=== PATIENT | female | born 2000 | race Caucasian/White ===

== ENCOUNTER 2020-09-05 12:57 | Inpatient (IN) | payer OTHER ==
[~2020-09-05] VITALS: Ht 154.9 cm; Wt 75.5 kg
[2020-09-07] MEDS ORDERED: NEWBORN KIT ONE (04:13)
[2020-09-07] MEDS ORDERED: OXYTOCIN 30U/ 0.9% NaCL 500ML 500 ML ONE (04:13)
[2020-09-07] MEDS ORDERED: MISOPROSTOL 200 MCG TABLET ONE (04:14)
[2020-09-07] MEDS ORDERED: LIDOCAINE 1%, 20ML ONE (04:14)
[2020-09-07 04:28] VITALS: BP 109/61
[2020-09-07] MEDS ORDERED: MISOPROSTOL 25 MCG TABLET VG PRN (05:00)
[2020-09-07] MEDS ORDERED: FENTANYL PF 100 MCG/2ML IV PRN (05:00)
[2020-09-07] MEDS ORDERED: TERBUTALINE 1 MG/ML, 1ML IVPush PRN (05:00)
[2020-09-07] MEDS ORDERED: ONDANSETRON 2MG/ML, 2ML IVPush PRN (05:00)
[2020-09-07] MEDS ORDERED: TERBUTALINE 1 MG/ML, 1ML SQ PRN (05:00)
[2020-09-07 05:02] LABS: BASOPHILS % (AUTO) 1 % (0-1); EOSINOPHILS % (AUTO) 1 % (1-7); LYMPHOCYTES % (AUTO) 24 % (22-44); MEAN CORPUSCULAR HEMOGLOBIN 29.3 pg (27.0-34.8); MEAN CORPUSCULAR HGB CONC 33.9 g/dL (32.4-35.8); MEAN PLATELET VOLUME 8.3 fL (7.4-10.4); MONOCYTES % (AUTO) 8 % (2-9); NEUTROPHILS % (AUTO) 67 % (42-75); PLATELET COUNT 272 x10^3/uL (130-400); RED BLOOD COUNT 3.71 x10^6/uL (3.82-5.3); RED CELL DISTRIBUTION WIDTH 13.9 % (9.6-15.2)
[2020-09-07] MEDS ORDERED: MISOPROSTOL 25 MCG TABLET ONE (05:32)
[2020-09-07] MEDS: LACTATED RINGERS 1,000 ML IV SCH ×2 (05:35→15:20)
[2020-09-07] MEDS: FENTANYL PF 100 MCG/2ML IVPush PRN ×2 (10:49→15:16)
[2020-09-07] MEDS ORDERED: OXYTOCIN 30U/ 0.9% NaCL 500ML 500 ML IV PRN (12:00)
[2020-09-07] MEDS ORDERED: FENTANYL/BUPIV./NS/PF 250 ML EPIDCONT ONE (15:49)
[2020-09-07] MEDS ORDERED: EPHEDRINE 50 MG/ML, 1ML ONE (15:49)
[2020-09-07] MEDS ORDERED: LIDOCAINE/PF 1.5% EPI 1:200K, 10 ML ONE (15:50)
[2020-09-07] MEDS ORDERED: NALOXONE 0.4 MG/ML, 1ML IVPush PRN (16:30)
[2020-09-07] MEDS ORDERED: EPHEDRINE 50 MG/ML, 1ML IVPush PRN (16:30)
[2020-09-07] MEDS ORDERED: LACTATED RINGERS 1,000 ML IV SCH (16:30)
[2020-09-07] MEDS ORDERED: FENTANYL/BUPIV./NS/PF 250 ML EPIDCONT SCH (16:30)
[2020-09-07] MEDS ORDERED: LACTATED RINGERS 1,000 ML IVBOLUS PRN (17:00)
[2020-09-07] MEDS ORDERED: LIDOCAINE-MPF 2% ,5ML ONE (21:51)
[2020-09-08] MEDS ORDERED: METOCLOPRAMIDE 5 MG/ML, 2ML ONE (15:34)
[2020-09-08] MEDS ORDERED: SODIUM CITRATE/CITRIC ACID 15 ML UDC ONE (15:34)
[2020-09-08] MEDS ORDERED: LIDOCAINE/MPF 2%-EPI 1:200K, 20 ML ONE (15:46)
[2020-09-08] MEDS ORDERED: morphine SULFATE/PF 0.5 MG/ML, 10ML ONE (16:08)
[2020-09-08] MEDS ORDERED: CEFAZOLIN 1,000 MG ONE (16:09)
[2020-09-08] MEDS ORDERED: SODIUM CHLORIDE 0.9% PF 10ML ONE ×2 (16:09→16:15)
[2020-09-08] MEDS ORDERED: KETOROLAC 30 MG/1 ML ONE (16:09)
[2020-09-08] MEDS ORDERED: OXYTOCIN 10 UNITS/ML, 1ML ONE (16:09)
[2020-09-08] MEDS ORDERED: DEXAMETHASONE 4 MG/ML, 1ML ONE (16:09)
[2020-09-08] MEDS ORDERED: ONDANSETRON 2MG/ML, 2ML ONE (16:09)
[2020-09-08] MEDS ORDERED: PHENYLEPHRINE 10 MG/ML ONE (16:15)
[2020-09-08] MEDS ORDERED: MEPERIDINE/PF 50 MG/ML ONE (16:57)
[2020-09-08] MEDS ORDERED: SIMETHICONE 80 MG CHEW TAB PO PRN (17:00)
[2020-09-08] MEDS ORDERED: GLYCERIN ADULT SUPP PR PRN (17:00)
[2020-09-08] MEDS ORDERED: OXYcodone/APAP 5/325MG TABLET PO PRN ×5 (17:00→20:30)
[2020-09-08] MEDS ORDERED: METHYLERGONOVINE 0.2 MG/ML IM PRN (17:00)
[2020-09-08] MEDS: OXYTOCIN 30U/ 0.9% NaCL 500ML 500 ML IV SCH (17:00)
[2020-09-08] MEDS: LACTATED RINGERS 1,000 ML IV SCH ×2 (17:00)
[2020-09-08] MEDS ORDERED: morphine SULFATE 10 MG/ML, 1ML IVPush PRN ×3 (17:00→20:30)
[2020-09-08] MEDS ORDERED: ONDANSETRON 2MG/ML, 2ML IV PRN (17:00)
[2020-09-08] MEDS ORDERED: MEPERIDINE/PF 25MG/0.5ML IVPush PRN (17:00)
[2020-09-08] MEDS ORDERED: BISACODYL 10 MG SUPP PR PRN (17:00)
[2020-09-08] MEDS ORDERED: KETOROLAC 30 MG/1 ML IV SCH (17:00)
[2020-09-08] MEDS ORDERED: MORPHINE SULFATE 4 MG/ML, 1ML IVPush PRN (17:00)
[2020-09-08] MEDS ORDERED: MISOPROSTOL 200 MCG TABLET PR PRN (17:00)
[2020-09-08] MEDS ORDERED: ONDANSETRON 2MG/ML, 2ML IVPush PRN (17:30)
[2020-09-08] MEDS ORDERED: EPHEDRINE 50 MG/ML, 1ML IVPush PRN (17:30)
[2020-09-08] MEDS ORDERED: NO SEDATIVES, TRANQUILIZERS OR ANTIEMETICS XX SCH (17:30)
[2020-09-08] MEDS ORDERED: NALOXONE 0.4 MG/ML, 1ML IV PRN (17:30)
[2020-09-08] MEDS ORDERED: DIPHENHYDRAMINE 50 MG/ML, 1ML IV PRN (17:30)
[2020-09-08] MEDS ORDERED: OXYcodone 5 MG/5 ML ORAL.SOL UDC ONE (18:35)
[2020-09-08] MEDS ORDERED: OXYcodone 5 MG/5 ML ORAL.SOL UDC PO PRN (19:00)
[2020-09-08 19:40] VITALS: BP 100/53
[2020-09-08] MEDS ORDERED: DIPHENHYDRAMINE 50 MG/ML, 1ML IVPush PRN (20:30)
[2020-09-08] MEDS: KETOROLAC 30 MG/1 ML IVPush SCH (22:08)
[2020-09-09 00:10] VITALS: BP 97/61
[2020-09-09] MEDS: LACTATED RINGERS 1,000 ML IV SCH ×5 (01:00→17:00)
[2020-09-09] MEDS: OXYTOCIN 30U/ 0.9% NaCL 500ML 500 ML IV SCH ×2 (03:00→13:00)
[2020-09-09 04:04] VITALS: BP 97/62
[2020-09-09] MEDS: KETOROLAC 30 MG/1 ML IVPush SCH ×3 (04:05→18:02)
[2020-09-09 06:15] LABS: BASOPHILS % (AUTO) 0 % (0-1); EOSINOPHILS % (AUTO) 0 % (1-7); LYMPHOCYTES % (AUTO) 10 % (22-44); MEAN CORPUSCULAR HEMOGLOBIN 29.3 pg (27.0-34.8); MEAN CORPUSCULAR HGB CONC 33.9 g/dL (32.4-35.8); MEAN PLATELET VOLUME 8.9 fL (7.4-10.4); MONOCYTES % (AUTO) 9 % (2-9); NEUTROPHILS % (AUTO) 80 % (42-75); PLATELET COUNT 220 x10^3/uL (130-400); RED BLOOD COUNT 2.85 x10^6/uL (3.82-5.3); RED CELL DISTRIBUTION WIDTH 14.2 % (9.6-15.2)
[2020-09-09 08:19] VITALS: BP 92/57
[2020-09-09] MEDS: PRENATAL VIT/IRON/FA 1 EACH TABLET PO SCH (09:56)
[2020-09-09] MEDS: DOCUSATE 100 MG CAPSULE PO PRN (09:56)
[2020-09-09 12:31] VITALS: BP 101/62
[2020-09-09 20:00] VITALS: BP 85/45
[2020-09-10] MEDS: KETOROLAC 30 MG/1 ML IVPush SCH ×3 (00:23→12:00)
[2020-09-10 07:45] VITALS: BP 98/65
[2020-09-10] MEDS ORDERED: IBUP-1223 PO (07:53)
[2020-09-10] MEDS ORDERED: DOCU-131 PO (07:53)
[2020-09-10] MEDS ORDERED: OXYC1TAB14 PO ×2 (07:53→07:59)
[2020-09-10] MEDS: DOCUSATE 100 MG CAPSULE PO PRN (09:08)
[2020-09-10] MEDS: PRENATAL VIT/IRON/FA 1 EACH TABLET PO SCH (09:11)
[2020-09-10] MEDS ORDERED: IBUPROFEN 800 MG TABLET ONE (12:32)
[2020-09-10] MEDS ORDERED: IBUPROFEN 800 MG TABLET PO PRN (12:42)
[2020-09-13] MEDS ORDERED: IBUPROFEN 800 MG TABLET PO PRN (17:00)
== END 2020-09-10 17:20 | disposition home or self-care (01) | DRG 788 ==
LOC: LDIP 09-07 03:52 → 2NW 09-08 19:30
PROVIDERS: ADMIT Obstetrics & Gynecology; ATTEND Obstetrics & Gynecology
PROC: 10D00Z1 Extraction of Products of Conception, Low, Open Approach (ICD-10-PCS; principal; 2020-09-08)
DX: O32.4XX0 Maternal care for high head at term, not applicable or unspecified (principal); O61.9 Failed induction of labor, unspecified; O69.81X0 Labor and delivery complicated by cord around neck, without compression, not applicable or unspecified; Z37.0 Single live birth; Z3A.40 40 weeks gestation of pregnancy; Z20.822 Contact with and (suspected) exposure to COVID-19
CPT/HCPCS: 36415; J3490; 85025; 86592; 86850; 86900; 87635; G0378; J0690; J1100; J1885; J2274; J2405; J3010; J2370; J2590; J7120